=== PATIENT | female | born 1945 | race African-American/Black ===

== ENCOUNTER 2017-07-21 16:14 | Emergency (ER) | payer OTHER ==
[~2017-07-21] VITALS: Ht 165.1 cm; Wt 94.8 kg
[2017-07-21 16:24] VITALS: BP 159/78
[2017-07-21 16:40] LABS: URINE BILIRUBIN NEGATIVE (Negative); URINE BLOOD 2+ (Negative); URINE CLARITY CLEAR; URINE COLOR YELLOW; URINE GLUCOSE-RANDOM* NEGATIVE (Negative); URINE KETONES NEGATIVE (Negative); URINE NITRITE-REFLEX NEGATIVE (Negative); URINE PROTEIN (DIPSTICK) 1+ (Negative)
[2017-07-21 16:41] LABS: URINE LEUKOCYTES-REFLEX 3+ (Negative)
[2017-07-21 16:48] LABS: CASTS None Seen /LPF (None Seen); CRYSTALS None Seen /LPF (None Seen); SQUAMOUS 4-10 Moderate /LPF (0-3); URINE WBC-REFLEX >25 Many /HPF (0-5)
[2017-07-21] MEDS ORDERED: KEFLEX500 M1 PO (17:00)
== END 2017-07-21 17:07 | disposition home or self-care (01) ==
LOC: ER 16:14
PROVIDERS: Emergency Medicine
DX: N39.0 Urinary tract infection, site not specified (principal)

== ENCOUNTER 2019-01-24 18:05 | Emergency (ER) | payer OTHER ==
[~2019-01-24] VITALS: Ht 165.1 cm; Wt 98.4 kg
[~2019-01-24 18:05] MED LIST: KEFLEX500 M1 PO
[2019-01-24 18:07] VITALS: BP 150/70
[2019-01-24] MEDS ORDERED: PROMETH-CODEIN 65 ML PO (19:24)
[2019-01-24] MEDS ORDERED: TESSALON PERLE100 MG PO (19:32)
[2019-01-24] MEDS ORDERED: PREDNISONE 20 M20 MG PO (19:32)
== END 2019-01-24 19:40 | disposition home or self-care (01) ==
LOC: ER 18:05
DX: R05 Cough (principal); I10 Essential (primary) hypertension; E78.5 Hyperlipidemia, unspecified; Z90.710 Acquired absence of both cervix and uterus; Z90.49 Acquired absence of other specified parts of digestive tract; Z96.641 Presence of right artificial hip joint; Z98.51 Tubal ligation status; Z87.891 Personal history of nicotine dependence

== ENCOUNTER → 2019-02-16 | Emergency (ER) | payer OTHER ==
[~2019-02-16] VITALS: Ht 165.1 cm; Wt 101.2 kg
[~2019-02-16] MED LIST changes: +PREDNISONE 20 M20 MG PO; +PROMETH-CODEIN 65 ML PO; +TESSALON PERLE100 MG PO
[2019-02-16 16:43] VITALS: BP 150/69
== END ==
LOC: ER 14:48
DX: S90.121A Contusion of right lesser toe(s) without damage to nail, initial encounter (principal); I10 Essential (primary) hypertension; E78.5 Hyperlipidemia, unspecified; Z90.710 Acquired absence of both cervix and uterus; Z90.49 Acquired absence of other specified parts of digestive tract; Z96.641 Presence of right artificial hip joint; Z98.51 Tubal ligation status; Z87.891 Personal history of nicotine dependence; W01.0XXA Fall on same level from slipping, tripping and stumbling without subsequent striking against object, initial encounter; Y93.89 Activity, other specified; Y92.510 Bank as the place of occurrence of the external cause; Y99.8 Other external cause status

== ENCOUNTER 2019-11-15 15:27 | Observation (INO) | payer OTHER ==
[~2019-11-15] VITALS: Ht 165.1 cm; Wt 101.2 kg
[2019-11-15 16:01] VITALS: BP 119/54
[2019-11-15 16:37] LABS: ABSOLUTE NEUTROPHILS 4.2 thou/uL (1.4-8.2); BASOPHILS 0.7 % (0.0-2.0); EOSINOPHILS 3.6 % (0.0-3.0); HEMATOCRIT 34.5 % (37.0-47.0); HEMOGLOBIN 11.8 gm/dL (12.0-15.0); LYMPHOCYTES 27.1 % (24.0-44.0); MCH 32.8 pg (26.0-34.0); MCHC 34.1 g/dL (28.0-37.0); MCV 95.9 fL (80.0-100.0); MONOCYTES 8.7 % (1.0-8.0); PLATELET COUNT 347 thou/uL (150-400); POLYS 59.9 % (36.0-66.0); RDW 15.9 % (10.5-14.5); WBC 6.9 thou/uL (4.0-11.0)
[2019-11-15 16:42] LABS: URINE BILIRUBIN NEGATIVE (Negative); URINE BLOOD TRACE (Negative); URINE CLARITY CLOUDY; URINE COLOR YELLOW; URINE GLUCOSE-RANDOM* NEGATIVE (Negative); URINE KETONES NEGATIVE (Negative); URINE NITRITE-REFLEX NEGATIVE (Negative); URINE PROTEIN (DIPSTICK) TRACE (Negative)
[2019-11-15 16:42] LABS: ANION GAP 10 mmol/L (7-16); BUN 10 mg/dL (7-18); CALCIUM 9.1 mg/dL (8.5-10.1); CHLORIDE 105 mmol/L (98-107); CO2 25 mmol/L (21-32); CREATININE 0.8 mg/dL (0.6-1.0); GLUCOSE 103 mg/dL (74-106); POTASSIUM 3.6 mmol/L (3.5-5.1); SODIUM 140 mmol/L (136-145)
[2019-11-15 16:45] LABS: URINE LEUKOCYTES-REFLEX 3+ (Negative)
[2019-11-15] MEDS ORDERED: CELECOXIB200 MG PO (16:49)
[2019-11-15] MEDS ORDERED: OMEPRAZOLE40 MG PO (16:49)
[2019-11-15] MEDS ORDERED: ACCURETIC 20-21 EACH PO (16:50)
[2019-11-15] MEDS ORDERED: VOLTAREN GEL 1100 GM TOP (16:50)
[2019-11-15] MEDS ORDERED: LIPITOR40 MG PO (16:51)
[2019-11-15] MEDS ORDERED: NORVASC 2.5 MG2.5 M1 PO (16:51)
[2019-11-15] MEDS ORDERED: ASA81BEC PO (16:52)
[2019-11-15] MEDS ORDERED: LOPRESSOR50 MG PO (16:52)
[2019-11-15 16:53] LABS: SQUAMOUS >10 Many /LPF (0-3); URINE WBC-REFLEX >25 Many /HPF (0-5)
[2019-11-15 16:54] LABS: CASTS None Seen /LPF (None Seen); CRYSTALS None Seen /LPF (None Seen); MUCUS 0-3 Light strn/LPF (None Seen); URINE RBC 3-10 Few /HPF (0-2)
[2019-11-15] MEDS ORDERED: CALCIUM CARBON600 MG PO (16:54)
[2019-11-15] MEDS ORDERED: THERA-D50 MCG PO (16:55)
[2019-11-15 16:57] LABS: ALBUMIN 3.4 g/dL (3.4-5.0); LIPASE 1906 U/L (73-393); SGOT 27 U/L (15-37); SGPT 24 U/L (30-65); TOTAL BILIRUBIN 0.8 mg/dL (0.2-1.0); TOTAL PROTEIN 7.7 g/dL (6.4-8.2); TROPONIN-I <0.06 ng/mL (<0.06)
[2019-11-15 20:32] VITALS: BP 125/58
[2019-11-15 21:06] VITALS: BP 111/51
[2019-11-15 21:07] VITALS: BP 111/51
[2019-11-15 21:21] VITALS: BP 139/66
[2019-11-16 00:15] LABS: CHOLESTEROL 120 mg/dL (<200); HDL CHOLESTEROL 45 mg/dL (>40); LDL CHOLESTEROL 57 mg/dL (<100); TC:HDL 2.7 Ratio (Not establshd); TRIGLYCERIDE 91 mg/dL (<150); VLDL 18 mg/dL (<40)
[2019-11-16 00:28] LABS: SERUM ASSESSMENT Clear
--- NOTE | 2019-11-16 03:22 | NUR ---
PATIENT AOX4 MAKES NEEDS KNOWN. PATIENT NEEDS MINIMUM ASSISTANCE WITH ADL, BED MOBILITY, TRANSFER AND TOILETING. PATIENT AMBULATES TO THE BATHROM WITH STEADY GAITS.PATIENT ADMITTED FOR ABD PAIN. PATIENT DENIED PAIN OR DISCOMFORT. PATIENT NPO THIS SHIFT. PATIENT SKIN WAS INTACT AND WARM NO BRUISES NOTED.FALL PRECAUTION IN PLACE. PATIENT IN BED ASLEEP AT THIS TIME BREATHING REGULAR AND UNLABOURED.
[2019-11-16 05:02] VITALS: BP 150/67
[2019-11-16 06:19] LABS: HEMATOCRIT 32.8 % (37.0-47.0); HEMOGLOBIN 11.2 gm/dL (12.0-15.0); MCH 33.2 pg (26.0-34.0); MCHC 34.1 g/dL (28.0-37.0); MCV 97.3 fL (80.0-100.0); RBC 3.38 mil/uL (4.20-5.00); RDW 16.3 % (10.5-14.5); WBC 6.1 thou/uL (4.0-11.0)
[2019-11-16 06:36] LABS: CALCIUM 8.8 mg/dL (8.5-10.1); CREATININE 0.9 mg/dL (0.6-1.0); MAGNESIUM 1.8 mg/dL (1.8-2.4); POTASSIUM 3.3 mmol/L (3.5-5.1)
[2019-11-16 07:24] VITALS: BP 139/66
--- NOTE | 2019-11-16 07:46 | EKG ---
[facility] [place] [address] ELECTROCARDIOGRAM REPORT Name: LILIAN STORY Room #: 457-P ADM IN M.R.#: [id number] Admission: 11/15/19 Attend Phys: William Beard MD Discharge: Date of : 47 Report #: [id number] THIS REPORT FOR: cc: FAM - No family physician/PCP FAM - No family physician/PCP Tom Lyn MD [facility] ~ THIS REPORT FOR: //name// [facility] ED Test Date: 2019-11-15 Test Time: 16:37:49 Pat Name: LILIAN STORY Department: Room: [facility] Gender: F Package Car Driver: rickey mosquera : 1945 Requested By: Aiden Orozco Order Number: [id number] MD: Tom Lyn Measurements Intervals [place] Rate: 48 P: 43 NM: 136 QRS: -12 QRSD: 90 T: 25 QT: 469 QTc: 419 Interpretive Statements Sinus bradycardia Otherwise normal No previous ECG available for comparison Electronically Signed On 11-16-2019 7:46:34 CDT by Tom Lyn [email or web address] <ELECTRONICALLY SIGNED> By: Tom Lyn MD, FACC 11/16/19 0746 [id number] Tom Lyn MD, [facility] /EPI
--- NOTE | 2019-11-16 11:38 | NUR ---
PT ALERT AND ORIENTED TIMES FOUR. VSS, IVF INFUSING PER ORDER. PT C/O PAIN PRN PAIN MEDSICATIONS GIVEN WITH RELEIF. PT DENIES N/V. PT TOLERATES MEDS AND CLEAR LIQUID DIET. PT UP WITH STANDBY ASSIST. PT DAUGHTER AT BEDSIDE. WILL CONTINUE TO MONITOR.
[2019-11-16 11:56] VITALS: BP 142/72
[2019-11-16 15:11] VITALS: BP 128/53
[2019-11-16 20:24] VITALS: BP 139/60
--- NOTE | 2019-11-17 04:26 | NUR ---
PATIENT AOX4 MAKES NEEDS KNOWN. PATIENT DENIED ABD PAIN THIS SHIFT. NO NAUSE/VOMIT THIS SHIFT. PATIENT IS UP AT RUSTY. PATIENT IN BED ASLEEP AT THIS TIME BREATHING REGULAR AND UNLABOURED.
[2019-11-17 05:04] VITALS: BP 141/65
[2019-11-17 08:37] VITALS: BP 149/71
--- NOTE | 2019-11-17 11:12 | NUR ---
PT CARE ASSUMED AT 0700. A&Ox4. PT UP INDEPENDENTLY IN ROOM. TOLERATED ADVANCED DIET WELL WITHOUT ANY PAIN N/V. IV FLUIDS DISCONTINUED. SCD'S IN PLACE. IV SITE PATENT WITH NO REDNESS OR EDEMA. NO ABDOMINL PAIN SOFT AND NOT TENDER TO THE TOUCH. CALL LIGHT IN REACH. WILL CONTINUE TO MONITOR.
[2019-11-17 11:33] VITALS: BP 149/72
== END 2019-11-17 12:21 | disposition home or self-care (01) ==
LOC: ER 15:27 → EROBS 20:23 → 4W 20:23
PROVIDERS: Emergency Medicine; Nurse Practitioner Family; ADMIT Internal Medicine; ATTEND Internal Medicine
DX: K85.90 Acute pancreatitis without necrosis or infection, unspecified (principal); R11.2 Nausea with vomiting, unspecified; I10 Essential (primary) hypertension; E78.5 Hyperlipidemia, unspecified; N39.0 Urinary tract infection, site not specified; A59.09 Other urogenital trichomoniasis; K21.9 Gastro-esophageal reflux disease without esophagitis; Z79.899 Other long term (current) drug therapy; Z87.891 Personal history of nicotine dependence
CPT/HCPCS: 10040

== ENCOUNTER 2020-05-07 14:57 | Emergency (ER) | payer OTHER ==
[~2020-05-07] VITALS: Ht 165.1 cm; Wt 101.2 kg
[~2020-05-07 14:57] MED LIST changes: +ACCURETIC 20-21 EACH PO; +ASA81BEC PO; +CALCIUM CARBON600 MG PO; +CELECOXIB200 MG PO; +LIPITOR40 MG PO; +LOPRESSOR50 MG PO; +NORVASC 2.5 MG2.5 M1 PO; +OMEPRAZOLE40 MG PO; +THERA-D50 MCG PO; +VOLTAREN GEL 1100 GM TOP
[2020-05-07] MEDS ORDERED: ROBAXIN 750 MG750 MG PO (15:41)
[2020-05-07 16:20] VITALS: BP 130/72
== END 2020-05-07 16:20 | disposition home or self-care (01) ==
LOC: ER 14:57
DX: S29.012A Strain of muscle and tendon of back wall of thorax, initial encounter (principal); I10 Essential (primary) hypertension; E78.5 Hyperlipidemia, unspecified; Z90.49 Acquired absence of other specified parts of digestive tract; Z90.710 Acquired absence of both cervix and uterus; Z79.82 Long term (current) use of aspirin; Z79.899 Other long term (current) drug therapy; Z87.891 Personal history of nicotine dependence; V43.52XA Car driver injured in collision with other type car in traffic accident, initial encounter; Y93.89 Activity, other specified; Y92.89 Other specified places as the place of occurrence of the external cause; Y99.8 Other external cause status

== ENCOUNTER 2020-10-28 11:23 | Emergency (ER) | payer OTHER ==
[~2020-10-28] VITALS: Ht 165.1 cm; Wt 100.7 kg
[~2020-10-28 11:23] MED LIST changes: +ROBAXIN 750 MG750 MG PO
[2020-10-28 11:27] VITALS: BP 127/82
== END 2020-10-28 13:25 | disposition home or self-care (01) ==
LOC: ER 11:23
DX: S92.412A Displaced fracture of proximal phalanx of left great toe, initial encounter for closed fracture (principal); I10 Essential (primary) hypertension; E78.5 Hyperlipidemia, unspecified; Z90.710 Acquired absence of both cervix and uterus; Z90.49 Acquired absence of other specified parts of digestive tract; Z79.899 Other long term (current) drug therapy; Z79.82 Long term (current) use of aspirin; Z79.891 Long term (current) use of opiate analgesic; Z87.891 Personal history of nicotine dependence; W18.49XA Other slipping, tripping and stumbling without falling, initial encounter; Y93.89 Activity, other specified; Y92.89 Other specified places as the place of occurrence of the external cause; Y99.8 Other external cause status